=== PATIENT | male | born 1985 | race Caucasian/White ===

== ENCOUNTER 2020-07-29 12:39 | Inpatient (IN) | payer OTHER ==
--- NOTE | 2020-07-29 13:28 | BHS.RME ---
Substance Use & Tx History - Substance Use History Alcohol Substance amount: 3-5 bottles wine Frequency of use: Daily Substance route: Oral Date of Last Use: 07/29/20 Nicotine Substance amount: 1/2 pack Frequency of use: Daily Substance route: Smoking Date of Last Use: 07/29/20 Klonopin Substance amount: 1-2 tab Frequency of use: Daily Substance route: Oral Date of Last Use: 07/29/20
[2020-07-29 14:52] VITALS: BMI 23.1
--- NOTE | 2020-07-29 15:05 | HP ---
CIWA Score - Admission Criteria OASAS Guidelines: Admission for Medically Managed Detox: Requires at least one of the followin. CIWA greater than 12 2. Seizures within the past 24 hours 3. Delirium tremens within the past 24 hours 4. Hallucinations within the past 24 hours 5. Acute intervention needed for co occurring medical disorder 6. Acute intervention needed for co occurring psychiatric disorder 7. Severe withdrawal that cannot be handled at a lower level of care (continued vomiting, continued diarrhea, abnormal vital signs) requiring intravenous medication and/or fluids 8. Admitting History and Physical - Admission Chief Complaint: Mr. Napier is a 35 yo man who presents to [facility] requesting detox from alcohol. History of Present Illness: Mr. Napier is a 35 yo man who presents to [facility] requesting detox from alcohol. This is his first [facility] admission. Review of outside records, [place] final dx: alcohol use disorder, anxiety, depression follow up instructions: [facility] detox PMH: HIV (undetectable VL and CD4 between 450 and 500 per pt), compliant with medication, HTN tx in past off meds now PSH: Lasik, varicocoel Psych: anxiety, depression: on Lexapro, Klonopin rx SOC: lives in [facility] alone with girlfriend Legal: none Substance Use History Alcohol Substance amount: 3-5 bottles wine Frequency of use: Daily Substance route: Oral Date of Last Use: 07/29/20 first use age 22 y No seizures Blackout in Dec 2019 Admits to eye graduate internship Nicotine Substance amount: 1/2 pack Frequency of use: Daily Substance route: Smoking Date of Last Use: 07/29/20 Age of first use age 26 y Klonopin Substance amount: 1-2 tab Frequency of use: Daily Substance route: Oral Date of Last Use: 07/29/20 Lamin Napier Date: 1985 Address: [address] [place] [address] Sex: Male Rx Written Rx Dispensed Drug Quantity Days Supply Prescriber Name Payment Method Dispenser 07/06/2020 07/07/2020 clonazepam 0.5 mg tablet 60 30 Carlos Eduardo Mcknight Medicaid [facility] #[id number] 05/09/2020 05/17/2020 clonazepam 0.5 mg tablet 120 30 Colleen Issa MD Medicaid [facility] #[id number] 02/01/2020 02/15/2020 modafinil 200 mg tablet 30 30 Colleen Issa MD Medicaid [facility] #[id number] 02/01/2020 02/06/2020 clonazepam 0.5 mg tablet 120 30 Colleen Issa MD Medicaid [facility] #[id number] 01/07/2020 01/07/2020 clonazepam 0.5 mg tablet 60 30 Colleen Issa MD Medicaid [facility] #[id number] 10/19/2019 11/02/2019 clonazepam 0.5 mg tablet 30 15 Colleen Issa MD Medicaid [facility] #[id number] Date: 1985 Address: [address] [place] [address] Sex: Male Rx Written Rx Dispensed Drug Quantity Days Supply Prescriber Name Payment Method Dispenser 08/11/2019 08/11/2019 oxycodone-acetaminophen 5-325 mg tab 5 2 [facility], [facility] History Source: Patient Limitations to Obtaining History: No Limitations - Smoking History Smoking history: Current every day smoker Have you smoked in the past 12 months: Yes Aproximately how many cigarettes per day: 10 Admission ROS [facility] Allergies/Adverse Reactions: Allergies Allergy/AdvReac Type Severity Reaction Status Date / Time No Known Allergies Allergy Verified 07/29/20 14:31 Exam Limitations: No Limitations - Ebola screening Have you traveled outside of the country in the last 21 days: No Have you been sick,other than usual withdrawal symptoms: No Do you have a fever: No - Review of Systems Constitutional: No Symptoms Reported EENT: reports: No Symptoms Reported Respiratory: reports: No Symptoms reported Cardiac: reports: No Symptoms Reported GI: reports: Nausea : reports: No Symptoms Reported Musculoskeletal: reports: Back Pain Integumentary: reports: Dryness Neuro: reports: No Symptoms reported Endocrine: reports: No Symptoms Reported Hematology: reports: Anemia (unknown cause) Patient History - Patient Medical History Hx Asthma: No Hx Chronic Obstructive Pulmonary Disease (COPD): No Hx Cardiac Disorders: No Hx Hypertension: Yes Hx Seizures: No Hx Diabetes: No Hx Gastrointestinal Disorders: No Hx Genitourinary Disorders: No Hx Sexually Transmitted Disorders: Yes (HIV) Hx Renal Disease (ESRD): No Hx Depression: Yes Hx Suicide Attempt: No Hx Schizophrenia: No - Patient Surgical History Past Surgical History: Yes Hx Neurologic Surgery: No Hx Cataract Extraction: No Hx Cardiac Surgery: No Hx Lung Surgery: No Hx Breast Surgery: No Hx Breast Biopsy: No Hx Abdominal Surgery: No Hx Appendectomy: No Hx Cholecystectomy: No Hx Genitourinary Surgery: No Hx Section: No Hx Orthopedic Surgery: No Other Surgical History: VARICOCILE, B/L LASIX SURGERY 2015 Anesthesia Reaction: No - PPD History Previous Implant?: (UNSURE) - Smoking Cessation Smoking history: Current every day smoker Have you smoked in the past 12 months: Yes Aproximately how many cigarettes per day: 10 Hx Chewing Tobacco Use: No Initiated information on smoking cessation: Yes 'Breaking Loose' booklet given: 07/29/20 Admission Physical Exam BHS - Physical General Appearance: Yes: No Apparent Distress, Nourished, Appropriately Dressed HEENTM: Yes: EOMI, Hearing grossly Normal, Normocephalic, Normal Voice Respiratory: Yes: Lungs Clear, No Respiratory Distress, No Accessory Muscle Use Neck: Yes: Within Normal Limits, Supple Breast: Yes: Breast Exam Deferred Cardiology: Yes: Regular Rhythm, Regular Rate Abdominal: Yes: Normal Bowel Sounds, Flat, Soft, Tenderness (mild bilateral upper quadrants) Genitourinary: Yes: Other (deferred) Back: Yes: Normal Inspection Musculoskeletal: Yes: Gait Steady Extremities: Yes: Normal Inspection, Non-Tender Neurological: Yes: Alert, Normal Response Integumentary: Yes: Within Normal Limits - Diagnostic (1) Alcohol dependence with withdrawal, uncomplicated Current Visit: Yes Status: Acute Comment: 1. Detox protocol 2. Librium, await labs to check LFTs 3. comfort medications (2) Benzodiazepine dependence, continuous Current Visit: Yes Status: Acute Comment: 1. I Stop checked, pt has rx clonazepam, will not continue while on Librium detox (3) Nicotine dependence Current Visit: Yes Status: Acute Comment: 1. Nicoderm patch (4) HIV (human immunodeficiency virus infection) Current Visit: Yes Status: Acute Comment: 1. continue meds, pt states he is compliant (5) Anemia Current Visit: Yes Status: Acute Comment: 1. unclear etiology 2. CBC drawn (6) Anxiety Current Visit: Yes Status: Acute (7) Depression Current Visit: Yes Status: Acute Comment: 1. was seen in [facility] late last evening, dx with alcohol use disorder, anxiety, depression 2. will have Psychiatry see pt (8) HTN (hypertension) Current Visit: Yes Status: Acute Comment: 1. prior meds discontinued per pt 2. will give Lisinopril 10 mg now and order daily to start tomorrow Cleared for Admission S - Detox or Rehab [facility] Level of Care: Medically Managed Detox Regimen/Protocol: Librium Breathalyzer - Breathalyzer Breathalyzer: 0 Urine Drug Screen - Test Device Lot number: [id number] Expiration date: 02/23/22 - Control Is test valid?: Yes - Results Drug screen NEGATIVE: No Urine drug screen results: BZO-Benzodiazepines Inpatient Rehab Admission - Rehab Decision to Admit Inpatient rehab admission?: No
[2020-07-29] MEDS ORDERED: LISINOPRIL 10 MG TABLET (FP) ONE (15:23)
[2020-07-29] MEDS ORDERED: IBUPROFEN 400 MG TABLET (FP) PO PRN (15:25)
[2020-07-29] MEDS ORDERED: ACETAMINOPHEN 325 MG TABLET (FP) PO PRN (15:25)
[2020-07-29] MEDS ORDERED: MAGNESIUM HYDROX 2400MG/30ML ORAL SUSPENSION 30 ML CUP PO PRN (15:25)
[2020-07-29] MEDS ORDERED: ONDANSETRON *ODT* 4 MG TABLET SL PRN (15:25)
[2020-07-29] MEDS ORDERED: BISMUTH SUBSALICYLATE 524 MG/30 ML UD PO PRN (15:25)
[2020-07-29] MEDS ORDERED: MAG HYDROX/AL HYDROX/SIMETH 30 ML UNIT-DOSE CUP PO PRN (15:25)
[2020-07-29] MEDS ORDERED: MAGNESIUM CITRATE 300 ML BOTTLE PO PRN (15:25)
[2020-07-29] MEDS ORDERED: LISINOPRIL 10 MG TABLET (FP) PO ONE (15:29)
[2020-07-29 16:41] LABS: HEMATOCRIT 41.3 % (35.4-49); HEMOGLOBIN 14.1 GM/dL (11.7-16.9); MCH 32.2 pg (25.7-33.7); MCHC 34.1 g/dl (32.0-35.9); MEAN CELL VOLUME 94.5 fl (80-96); PLATELET COUNT 252 K/MM3 (134-434); RBC 4.37 M/mm3 (4.00-5.60); RDW 14.7 % (11.9-15.9); WHITE BLOOD COUNT 3.7 K/mm3 (4.0-10.0)
[2020-07-29 16:48] LABS: ALBUMIN 4.3 g/dl (3.4-5.0); BLOOD UREA NITROGEN 16.6 mg/dL (7-18); CALCIUM 9.4 mg/dL (8.5-10.1); POTASSIUM 4.1 mmol/L (3.5-5.1); TOT PROT 7.3 g/dl (6.4-8.2)
[2020-07-29] MEDS: hydrOXYzine PAMOATE 25 MG CAPSULE (FP) PO SCH ×2 (18:35→22:36)
[2020-07-29] MEDS: chlordiazePOXIDE HCL 25 MG CAPSULE PO SCH ×2 (18:35→22:36)
[2020-07-29] MEDS: NICOTINE 14 MG/24 HOURS TOPICAL PATCH TD SCH (18:36)
[2020-07-29] MEDS: THIAMINE HCL 100 MG TABLET (FP) PO SCH (22:36)
[2020-07-29] MEDS: MELATONIN 5 MG TABLETS PO SCH (22:36)
[2020-07-30] MEDS: chlordiazePOXIDE HCL 25 MG CAPSULE PO SCH ×4 (06:12→22:45)
[2020-07-30] MEDS: hydrOXYzine PAMOATE 25 MG CAPSULE (FP) PO SCH ×5 (06:12→22:45)
[2020-07-30] MEDS: BICTEGRAV/EMTRICIT/TENOFOV (BIKTARVY) 50-200-25 MG TABLET PO SCH (10:49)
[2020-07-30] MEDS: NICOTINE 14 MG/24 HOURS TOPICAL PATCH TD SCH (10:51)
[2020-07-30] MEDS: PRENATAL VITAMINS W/ FOLIC ACID TABLET (FP) PO SCH (10:51)
[2020-07-30] MEDS: LISINOPRIL 10 MG TABLET (FP) PO SCH (10:51)
--- NOTE | 2020-07-30 11:16 | CONSULT ---
[facility] Psychiatric Consult - Data Date of interview: 07/30/20 Admission source: [facility] Identifying data: First visit to [facility] and admission to [address] [place] [address] for this 35 y/o [place]born male, self-referred for detoxification treatment. VIVIANE issues : alcohol, benzodiazepine (klonopin), nicotine. Patient is single, no dependents, domiciled, unemployed and supported on welfare. Substance Abuse History: Discussed with the patient. VIVIANE profile as follows : Alcohol. Substance amount: 3-5 bottles wine. Frequency of use: Daily. Substance route: Oral. Date of Last Use: 07/29/20. first use age 22 y. No seizures. Blackout in Dec 2019. Admits to eye [employer]. Nicotine. Substance amount: 1/2 pack. Frequency of use: Daily. Substance route: Smoking. Date of Last Use: 07/29/20. Age of first use age 26 y. Klonopin. Substance amount: 1-2 tab. Frequency of use: Daily. Substance route: Oral. Date of Last Use: 07/29/20 Medical History: Medical profile is remarkable for HIV infection (on ART medications), hypertension, varicocele and history of Lasik surgery (bilateral). No known allergies. Psychiatric History: Patient denies history of psychiatric hospitalizations. However, he endorses current outpatient psychiatric care at the [facility] in [facility]. Mr Napier reports his maintenance medications as clonazepam + propanolol + lexapro (doses not recalled). Patient denies history of suicide attempts. Physical/Sexual Abuse/Trauma History: Not discussed. Patient declines. Additional Comment: Urine drug screen results: BZO-Benzodiazepines. Noted. Mental Status Exam - Mental Status Exam Alert and Oriented to: Time, Place, Person Cognitive Function: Good Patient Appearance: Well Groomed Mood: Withdrawn Affect: Appropriate, Normal Range Patient Behavior: Fatigued, Appropriate, Cooperative Speech Pattern: Clear, Appropriate Voice Loudness: Normal Thought Process: Intact, Goal Oriented Thought Disorder: Not Present Hallucinations: Denies Suicidal Ideation: Denies Homicidal Ideation: Denies Insight/Judgement: Fair Sleep: Fair Appetite: Good Gait/Station: Normal Psychiatric Findings - Problem List ([place] 1, 2,3) (1) Alcohol dependence with withdrawal, uncomplicated Current Visit: Yes Status: Acute Comment: (2) Benzodiazepine dependence, continuous Current Visit: Yes Status: Chronic Comment: (3) Nicotine dependence Current Visit: Yes Status: Chronic Comment: (4) History of depression Current Visit: Yes Status: Chronic (5) History of anxiety disorder Current Visit: Yes Status: Chronic - Initial Treatment Plan Initial Treatment Plan: Psychoeducation. Sleep hygiene principles revisited. Support. Detoxification in progress. [employer] contacted pharmacist ([phone]) at [facility] # [id number] for verification of medications : confirmed scripts for gabapentin 100 mg/tid + klonopin 0.5 mg/bid + lexapro 10 mg/day + trazodone 50 mg/hs prn (07/06/20). Resumed with the patient's consent (verbal) : gabapentin 100 mg po tid + lexapro 10 mg po daily. Side effects/benefits discussed with the patient. Mr Napier is in agreement with this plan of care. Observation.
--- NOTE | 2020-07-30 12:40 | PN ---
[facility] CIWA - CIWA Score Nausea/Vomitin-No Nausea/No Vomiting Muscle Tremors: None Anxiety: 3 Agitation: 0-Normal Activity Paroxysmal Sweats: 3 Orientation: 0-Oriented Tacttile Disturbances: 0-None Auditory Disturbances: 0-None Visual Disturbances: 0-None Headache: 2-Mild CIWA-Ar Total Score: 8 S Progress Note (SOAP) Subjective: c/o headache, sweats, anxiety, and interrupted sleep. Objective: 07/30/20 12:36 Vital Signs 07/30/20 08:35 Temperature 97.7 F Pulse Rate 61 Respiratory 17 Rate Blood Pressure 112/67 Laboratory Last Values WBC 3.7 K/mm3 (4.0-10.0) L 07/29/20 15:15 RBC 4.37 M/mm3 (4.00-5.60) 07/29/20 15:15 Hgb 14.1 GM/dL (11.7-16.9) 07/29/20 15:15 Hct 41.3 % (35.4-49) 07/29/20 15:15 MCV 94.5 fl (80-96) 07/29/20 15:15 MCH 32.2 pg (25.7-33.7) 07/29/20 15:15 MCHC 34.1 g/dl (32.0-35.9) 07/29/20 15:15 RDW 14.7 % (11.9-15.9) 07/29/20 15:15 Plt Count 252 K/MM3 (134-434) 07/29/20 15:15 MPV 7.0 fl (7.5-11.1) L 07/29/20 15:15 Sodium 139 mmol/L (136-145) 07/29/20 15:15 Potassium 4.1 mmol/L (3.5-5.1) 07/29/20 15:15 Chloride 104 mmol/L (98-107) 07/29/20 15:15 Carbon Dioxide 33 mmol/L (21-32) H 07/29/20 15:15 Anion Gap 2 MMOL/L (8-16) L 07/29/20 15:15 BUN 16.6 mg/dL (7-18) 07/29/20 15:15 Creatinine 1.0 mg/dL (0.55-1.3) 07/29/20 15:15 Est GFR (CKD-EPI)AfAm 114.11 07/29/20 15:15 Est GFR (CKD-EPI)NonAf 98.45 07/29/20 15:15 Random Glucose 103 mg/dL (74-106) 07/29/20 15:15 Calcium 9.4 mg/dL (8.5-10.1) 07/29/20 15:15 Total Bilirubin 1.0 mg/dL (0.2-1) 07/29/20 15:15 AST 17 U/L (15-37) 07/29/20 15:15 ALT 29 U/L (13-61) 07/29/20 15:15 Alkaline Phosphatase 81 U/L (45-117) 07/29/20 15:15 Total Protein 7.3 g/dl (6.4-8.2) 07/29/20 15:15 Albumin 4.3 g/dl (3.4-5.0) 07/29/20 15:15 Syphilis Serology Reactive (NONREACTIVE) A* 07/29/20 15:15 RPR Titer Reactive 1:1 (NONREACTIVE) H 07/29/20 15:15 Labs noted with RPR of 1:1. 07/30/20 12:41 Assessment: 07/30/20 12:40 AOX3, in no acute respiratory distress. Full ROM, ambulating in the unit. Withdrawal symptoms. RPR 1:1, had syphilis and got treated some years ago. 07/30/20 12:42 07/30/20 14:17 Plan: continue detox.
[2020-07-30] MEDS: ACETAMINOPHEN 325 MG TABLET (FP) PO PRN (14:49)
[2020-07-30] MEDS: chlordiazePOXIDE HCL 25 MG CAPSULE PO PRN (14:49)
[2020-07-30] MEDS: GABAPENTIN 100 MG CAPSULE PO SCH (22:45)
[2020-07-30] MEDS: THIAMINE HCL 100 MG TABLET (FP) PO SCH (22:45)
[2020-07-30] MEDS: MELATONIN 5 MG TABLETS PO SCH (22:46)
[2020-07-31] MEDS: GABAPENTIN 100 MG CAPSULE PO SCH ×3 (06:10→23:09)
[2020-07-31] MEDS: hydrOXYzine PAMOATE 25 MG CAPSULE (FP) PO SCH ×5 (06:10→23:11)
[2020-07-31] MEDS: chlordiazePOXIDE HCL 25 MG CAPSULE PO SCH ×4 (06:10→23:10)
[2020-07-31] MEDS: BICTEGRAV/EMTRICIT/TENOFOV (BIKTARVY) 50-200-25 MG TABLET PO SCH (09:57)
[2020-07-31] MEDS: LISINOPRIL 10 MG TABLET (FP) PO SCH (09:58)
[2020-07-31] MEDS: ESCITALOPRAM OXALATE 10 MG TABLET PO SCH (09:58)
[2020-07-31] MEDS: PRENATAL VITAMINS W/ FOLIC ACID TABLET (FP) PO SCH (09:58)
[2020-07-31] MEDS: NICOTINE 14 MG/24 HOURS TOPICAL PATCH TD SCH (10:58)
--- NOTE | 2020-07-31 11:05 | PN ---
[facility] CIWA - CIWA Score Nausea/Vomitin-Mild Nausea/No Vomiting Muscle Tremors: 1-None Visible, but [place] Anxiety: 1-Mildly Anxious Agitation: 1-Slight > Activity Paroxysmal Sweats: 1-Minimal Palms Moist Orientation: 0-Oriented Tacttile Disturbances: 1-Very Mild Itch/Numbness Auditory Disturbances: 0-None Visual Disturbances: 0-None Headache: 1-Very Mild CIWA-Ar Total Score: 7 S Progress Note (SOAP) Subjective: 35 years old male was admitted on 07/29/20 for alcohol and benzo withdrawal sx management treating with librium detox regiment long history of hiv taking valtrax daily 1000mg reports gerd discontinue motrin begin pepcid tylenal 02/25 headache tylenal 650mg po x 1 oral thrust white patches on oral cheeks flagyl 500mg po bid x 5 days Objective: 07/31/20 11:14 Vital Signs - 24 hr 07/30/20 07/30/20 07/30/20 12:53 16:48 20:36 Temperature 97.7 F 97.7 F 97.7 F Pulse Rate 84 65 75 Respiratory 18 17 18 Rate Blood Pressure 145/92 126/79 143/94 O2 Sat by Pulse 98 98 Oximetry (%) 07/31/20 07/31/20 06:05 08:57 Temperature 97.1 F L 96.1 F L Pulse Rate 86 86 Respiratory 18 18 Rate Blood Pressure 128/73 146/87 O2 Sat by Pulse 95 Oximetry (%) Laboratory Tests 07/29/20 07/29/20 07/29/20 14:55 15:15 15:15 WBC 3.7 L RBC 4.37 Hgb 14.1 Hct 41.3 MCV 94.5 MCH 32.2 MCHC 34.1 RDW 14.7 Plt Count 252 MPV 7.0 L Sodium 139 Potassium 4.1 Chloride 104 Carbon Dioxide 33 H Anion Gap 2 L BUN 16.6 Creatinine 1.0 Est GFR (CKD-EPI)AfAm 114.11 Est GFR (CKD-EPI)NonAf 98.45 Random Glucose 103 Calcium 9.4 Total Bilirubin 1.0 AST 17 ALT 29 Alkaline Phosphatase 81 Total Protein 7.3 Albumin 4.3 Syphilis Serology RPR Titer COVID-19 (DENISSE) Not detected 07/29/20 07/29/20 15:15 15:15 WBC RBC Hgb Hct MCV MCH MCHC RDW Plt Count MPV Sodium Potassium Chloride Carbon Dioxide Anion Gap BUN Creatinine Est GFR (CKD-EPI)AfAm Est GFR (CKD-EPI)NonAf Random Glucose Calcium Total Bilirubin AST ALT Alkaline Phosphatase Total Protein Albumin Syphilis Serology Reactive A* RPR Titer Reactive 1:1 H COVID-19 (DENISSE) 07/31/20 11:16 syphilis contacted treated Assessment: 07/31/20 11:16 alcohol and benzo withdrawal Plan: librium regiment
[2020-07-31] MEDS ORDERED: ACETAMINOPHEN 325 MG TABLET (FP) PO ONE (11:11)
[2020-07-31] MEDS ORDERED: FAMOTIDINE 20 MG TABLET PO SCH (11:15)
[2020-07-31] MEDS: METHOCARBAMOL 500 MG TABLET PO PRN (13:58)
[2020-07-31] MEDS: chlordiazePOXIDE HCL 25 MG CAPSULE PO PRN (13:58)
[2020-07-31] MEDS: valACYclovir HCL 500 MG TABLET (FP) PO SCH (13:58)
[2020-07-31] MEDS: metroNIDAZOLE 250 MG TABLET PO SCH ×2 (14:08→23:10)
[2020-07-31] MEDS: NICOTINE POLACRILEX 2 MG GUM BUC PRN ×2 (17:28→21:30)
[2020-07-31] MEDS: MENTHOL/PHENOL 1 EACH UD MM PRN (21:30)
[2020-07-31] MEDS: FAMOTIDINE 20 MG TABLET PO SCH (23:10)
[2020-07-31] MEDS: MELATONIN 5 MG TABLETS PO SCH (23:10)
[2020-07-31] MEDS: THIAMINE HCL 100 MG TABLET (FP) PO SCH (23:11)
[2020-08-01] MEDS ORDERED: chlordiazePOXIDE HCL 10 MG CAPSULE PO PRN
[2020-08-01] MEDS: METHOCARBAMOL 500 MG TABLET PO PRN (01:10)
[2020-08-01] MEDS: ACETAMINOPHEN 325 MG TABLET (FP) PO PRN (01:11)
[2020-08-01] MEDS: hydrOXYzine PAMOATE 25 MG CAPSULE (FP) PO SCH ×5 (05:22→22:14)
[2020-08-01] MEDS: chlordiazePOXIDE HCL 10 MG CAPSULE PO SCH ×4 (05:22→22:13)
[2020-08-01] MEDS: GABAPENTIN 100 MG CAPSULE PO SCH ×3 (05:22→22:14)
[2020-08-01] MEDS: FAMOTIDINE 20 MG TABLET PO SCH ×2 (10:25→22:13)
[2020-08-01] MEDS: valACYclovir HCL 500 MG TABLET (FP) PO SCH (10:25)
[2020-08-01] MEDS: ESCITALOPRAM OXALATE 10 MG TABLET PO SCH (10:26)
[2020-08-01] MEDS: PRENATAL VITAMINS W/ FOLIC ACID TABLET (FP) PO SCH (10:26)
[2020-08-01] MEDS: NICOTINE 14 MG/24 HOURS TOPICAL PATCH TD SCH (10:26)
[2020-08-01] MEDS: BICTEGRAV/EMTRICIT/TENOFOV (BIKTARVY) 50-200-25 MG TABLET PO SCH (10:26)
[2020-08-01] MEDS: LISINOPRIL 10 MG TABLET (FP) PO SCH (10:26)
[2020-08-01] MEDS: metroNIDAZOLE 250 MG TABLET PO SCH ×2 (10:26→22:14)
[2020-08-01] MEDS: NICOTINE POLACRILEX 2 MG GUM BUC PRN ×3 (10:33→22:17)
[2020-08-01] MEDS: MENTHOL/PHENOL 1 EACH UD MM PRN ×3 (10:34→22:18)
[2020-08-01] MEDS ORDERED: PNEUMOCOCCAL 23 VACCINE 0.5 ML VIAL IM ONE (11:19)
[2020-08-01] MEDS ORDERED: PENICILLIN G BENZATHINE 2,400,000 UNIT/4 ML PFS IM ONE (11:38)
--- NOTE | 2020-08-01 11:38 | PN ---
S CIWA - CIWA Score Nausea/Vomitin-Mild Nausea/No Vomiting Muscle Tremors: 2 Anxiety: 3 Agitation: 0-Normal Activity Paroxysmal Sweats: No Perspiration Orientation: 0-Oriented Tacttile Disturbances: 0-None Auditory Disturbances: 0-None Visual Disturbances: 0-None Headache: 0-None Present CIWA-Ar Total Score: 6 BHS Progress Note (SOAP) Subjective: 35 yeas old male was admitted on 07/29/20 for alcohol and benzo withdrawal sx management treating with librium detox regiment mr guerrero stats that he has itchy skin on and off due to his hiv status bendaryl cream TP mr guerrero requests pneumovax due to his hiv status "my doctor gave me that 2003" order pneumovax IM Objective: 08/01/20 11:25 Vital Signs - 24 hr 07/31/20 07/31/20 07/31/20 12:23 16:46 20:52 Temperature 97.1 F L 97.0 F L 97.5 F L Pulse Rate 86 107 H 83 Respiratory 16 19 18 Rate Blood Pressure 130/75 119/70 121/68 O2 Sat by Pulse 95 95 Oximetry (%) 08/01/20 08/01/20 05:12 09:01 Temperature 96.8 F L 97.3 F L Pulse Rate 71 93 H Respiratory 18 20 Rate Blood Pressure 100/61 127/76 O2 Sat by Pulse 97 Oximetry (%) Laboratory Tests 07/29/20 07/29/20 07/29/20 14:55 15:15 15:15 WBC 3.7 L RBC 4.37 Hgb 14.1 Hct 41.3 MCV 94.5 MCH 32.2 MCHC 34.1 RDW 14.7 Plt Count 252 MPV 7.0 L Sodium 139 Potassium 4.1 Chloride 104 Carbon Dioxide 33 H Anion Gap 2 L BUN 16.6 Creatinine 1.0 Est GFR (CKD-EPI)AfAm 114.11 Est GFR (CKD-EPI)NonAf 98.45 Random Glucose 103 Calcium 9.4 Total Bilirubin 1.0 AST 17 ALT 29 Alkaline Phosphatase 81 Total Protein 7.3 Albumin 4.3 Syphilis Serology RPR Titer COVID-19 (DENISSE) Not detected 07/29/20 07/29/20 15:15 15:15 WBC RBC Hgb Hct MCV MCH MCHC RDW Plt Count MPV Sodium Potassium Chloride Carbon Dioxide Anion Gap BUN Creatinine Est GFR (CKD-EPI)AfAm Est GFR (CKD-EPI)NonAf Random Glucose Calcium Total Bilirubin AST ALT Alkaline Phosphatase Total Protein Albumin Syphilis Serology Reactive A* RPR Titer Reactive 1:1 H COVID-19 (DENISSE) 08/01/20 11:47 mr guerrero requests boost shot of penicillin order penicillin IM x 1 Assessment: 08/01/20 11:50 alcohol and benzo withdrawal Plan: librium regiment
--- NOTE | 2020-08-01 11:45 | EKG ---
Test Reason : Blood Pressure : / mmHG Vent. Rate : 053 BPM Atrial Rate : 053 BPM P-R Int : 164 ms QRS Dur : 084 ms QT Int : 396 ms P-R-T Axes : 071 067 047 degrees QTc Int : 371 ms SINUS BRADYCARDIA OTHERWISE NORMAL ECG NO PREVIOUS ECGS AVAILABLE Confirmed by PRASANTH SALAZAR MD ([id number]) on 08/01/2020 11:44:25 AM Referred By: Confirmed By:PRASANTH SALAZAR MD
--- NOTE | 2020-08-01 15:47 | PN ---
[facility] Progress Note Note: Psychiatry Attending's note (follow-up) : Met briefly with the patient. Mr Napier requests trazodone at bedtime. Patient is made aware of risk of priapism. Trazodone 50 mg po hs. Ordered on consent.
[2020-08-01] MEDS: traZODone HCL 50 MG TABLET (FP) PO SCH (22:13)
[2020-08-01] MEDS: MELATONIN 5 MG TABLETS PO SCH (22:14)
[2020-08-01] MEDS: THIAMINE HCL 100 MG TABLET (FP) PO SCH (22:14)
[2020-08-02] MEDS: GABAPENTIN 100 MG CAPSULE PO SCH ×3 (06:04→22:18)
[2020-08-02] MEDS: hydrOXYzine PAMOATE 25 MG CAPSULE (FP) PO SCH ×5 (06:04→22:18)
[2020-08-02] MEDS: chlordiazePOXIDE HCL 10 MG CAPSULE PO SCH ×2 (06:05→18:06)
[2020-08-02] MEDS: MENTHOL/PHENOL 1 EACH UD MM PRN ×4 (06:06→21:30)
[2020-08-02] MEDS: NICOTINE POLACRILEX 2 MG GUM BUC PRN ×4 (06:06→21:29)
[2020-08-02] MEDS: BICTEGRAV/EMTRICIT/TENOFOV (BIKTARVY) 50-200-25 MG TABLET PO SCH (10:41)
[2020-08-02] MEDS: valACYclovir HCL 500 MG TABLET (FP) PO SCH (10:42)
[2020-08-02] MEDS: NICOTINE 14 MG/24 HOURS TOPICAL PATCH TD SCH (10:43)
[2020-08-02] MEDS: metroNIDAZOLE 250 MG TABLET PO SCH ×2 (10:43→22:18)
[2020-08-02] MEDS: FAMOTIDINE 20 MG TABLET PO SCH ×2 (10:43→22:18)
[2020-08-02] MEDS: LISINOPRIL 10 MG TABLET (FP) PO SCH (10:43)
[2020-08-02] MEDS: ESCITALOPRAM OXALATE 10 MG TABLET PO SCH (10:43)
[2020-08-02] MEDS: PRENATAL VITAMINS W/ FOLIC ACID TABLET (FP) PO SCH (12:18)
--- NOTE | 2020-08-02 13:48 | PN ---
S CIWA - CIWA Score Nausea/Vomitin-Mild Nausea/No Vomiting Muscle Tremors: 1-None Visible, but [place] Anxiety: 1-Mildly Anxious Agitation: 0-Normal Activity Paroxysmal Sweats: No Perspiration Orientation: 0-Oriented Tacttile Disturbances: 0-None Auditory Disturbances: 0-None Visual Disturbances: 0-None Headache: 0-None Present CIWA-Ar Total Score: 3 BHS Progress Note (SOAP) Subjective: 35 YEARS OLD MALE WAS ADMITTED ON 07/29/20 FOR ALCOHOL AND BENZO WITHDRAWAL SX MANAGEMENT TREATING WITH LIBRIUM DETOX REGIMENT FEELS BETTER TODAY LESS TREMOR MILD ANXIETY DISCUSS AFTERCARE WITH STAFF THAT MR SALAZAR PREFERTS TO GO TO [facility] FOR ALCOHOL AND BENZO ABUSE TREATMENT Objective: 08/02/20 13:52 Vital Signs - 24 hr 08/01/20 08/01/20 08/01/20 16:20 17:01 20:58 Temperature 97.8 F 97.9 F 97.5 F L Pulse Rate 92 H 88 85 Respiratory 18 18 18 Rate Blood Pressure 118/72 142/81 134/85 O2 Sat by Pulse 97 97 Oximetry (%) 08/02/20 08/02/20 06:05 08:44 Temperature 97.1 F L 98 F Pulse Rate 77 75 Respiratory 18 20 Rate Blood Pressure 114/63 136/77 O2 Sat by Pulse 97 97 Oximetry (%) Laboratory Tests 07/29/20 07/29/20 07/29/20 14:55 15:15 15:15 WBC 3.7 L RBC 4.37 Hgb 14.1 Hct 41.3 MCV 94.5 MCH 32.2 MCHC 34.1 RDW 14.7 Plt Count 252 MPV 7.0 L Sodium 139 Potassium 4.1 Chloride 104 Carbon Dioxide 33 H Anion Gap 2 L BUN 16.6 Creatinine 1.0 Est GFR (CKD-EPI)AfAm 114.11 Est GFR (CKD-EPI)NonAf 98.45 Random Glucose 103 Calcium 9.4 Total Bilirubin 1.0 AST 17 ALT 29 Alkaline Phosphatase 81 Total Protein 7.3 Albumin 4.3 Syphilis Serology RPR Titer COVID-19 (DENISSE) Not detected 07/29/20 07/29/20 15:15 15:15 WBC RBC Hgb Hct MCV MCH MCHC RDW Plt Count MPV Sodium Potassium Chloride Carbon Dioxide Anion Gap BUN Creatinine Est GFR (CKD-EPI)AfAm Est GFR (CKD-EPI)NonAf Random Glucose Calcium Total Bilirubin AST ALT Alkaline Phosphatase Total Protein Albumin Syphilis Serology Reactive A* RPR Titer Reactive 1:1 H COVID-19 (DENISSE) SYPHILIS CONTACTED TREATED Assessment: 08/02/20 13:53 ALCOHOL AND BENZO WITHDRAWAL Plan: LIBRIUM REGIMENT
[2020-08-02] MEDS ORDERED: PNEUMOC 13-VAL CONJ-DIP CRM/PF 0.5 ML DISP.SYRIN IM ONE (14:40)
[2020-08-02] MEDS: traZODone HCL 50 MG TABLET (FP) PO SCH (22:17)
[2020-08-02] MEDS: MELATONIN 5 MG TABLETS PO SCH (22:18)
[2020-08-02] MEDS: THIAMINE HCL 100 MG TABLET (FP) PO SCH (22:18)
[2020-08-03] MEDS ORDERED: chlordiazePOXIDE HCL 10 MG CAPSULE PO ONE (05:00)
[2020-08-03] MEDS: hydrOXYzine PAMOATE 25 MG CAPSULE (FP) PO SCH ×2 (06:06→09:16)
[2020-08-03] MEDS: GABAPENTIN 100 MG CAPSULE PO SCH (06:06)
[2020-08-03 06:35] VITALS: BP 124/71; PULSE 73; TEMP 97.5
[2020-08-03] MEDS: NICOTINE POLACRILEX 2 MG GUM BUC PRN (06:45)
[2020-08-03] MEDS: PRENATAL VITAMINS W/ FOLIC ACID TABLET (FP) PO SCH (09:13)
[2020-08-03] MEDS: valACYclovir HCL 500 MG TABLET (FP) PO SCH (09:13)
[2020-08-03] MEDS: ESCITALOPRAM OXALATE 10 MG TABLET PO SCH (09:14)
[2020-08-03] MEDS: LISINOPRIL 10 MG TABLET (FP) PO SCH (09:14)
[2020-08-03] MEDS: BICTEGRAV/EMTRICIT/TENOFOV (BIKTARVY) 50-200-25 MG TABLET PO SCH (09:14)
[2020-08-03] MEDS: metroNIDAZOLE 250 MG TABLET PO SCH (09:14)
[2020-08-03] MEDS: FAMOTIDINE 20 MG TABLET PO SCH (09:16)
[2020-08-03] MEDS: NICOTINE 14 MG/24 HOURS TOPICAL PATCH TD SCH (09:16)
--- NOTE | 2020-08-03 14:20 | DS ---
[facility] Detox Discharge Summary Admission Date: 07/29/20 Discharge Date: 08/03/20 - History Present History: Alcohol Dependence, Sedative Dependence Additional Comments: 35 years old male was admitted on 07/29/20 for alcohol and benzo withdrawal sx management treating with librium detox regiment seen by psychiatrist resume laxapro seroquel trazodone gabapentin mr guerrero has completed the librium regiment and is tolerated well General Appearance: Yes: No Apparent Distress, Nourished, Appropriately Dressed HEENTM: Yes: EOMI, Hearing grossly Normal, Normocephalic, Normal Voice Respiratory: Yes: Lungs Clear, No Respiratory Distress, No Accessory Muscle Use Neck: Yes: Within Normal Limits, Supple Breast: Yes: Breast Exam Deferred Cardiology: Yes: Regular Rhythm, Regular Rate Abdominal: Yes: Normal Bowel Sounds, Flat, Soft, Tenderness (mild bilateral upper quadrants) Genitourinary: Yes: Other (deferred) Back: Yes: Normal Inspection Musculoskeletal: Yes: Gait Steady Extremities: Yes: Normal Inspection, Non-Tender Neurological: Yes: Alert, Normal Response Integumentary: Yes: Within Normal Limits Pertinent Past History: time for discharge 35 minutes - Physical Exam Results Vital Signs: Vital Signs Temperature 97.5 F L 08/03/20 06:34 Pulse Rate 73 08/03/20 06:34 Respiratory Rate 18 08/03/20 06:34 Blood Pressure 124/71 08/03/20 06:34 O2 Sat by Pulse Oximetry (%) 99 08/03/20 06:34 Pertinent Admission Physical Exam Findings: alcohol and benzo withdrawal Vital Signs - 24 hr 08/02/20 08/02/20 08/03/20 16:59 20:59 06:34 Temperature 98.0 F 97.3 F L 97.5 F L Pulse Rate 90 95 H 73 Respiratory 18 18 18 Rate Blood Pressure 138/83 135/84 124/71 O2 Sat by Pulse 100 98 99 Oximetry (%) Laboratory Tests 07/29/20 07/29/20 07/29/20 14:55 15:15 15:15 WBC 3.7 L RBC 4.37 Hgb 14.1 Hct 41.3 MCV 94.5 MCH 32.2 MCHC 34.1 RDW 14.7 Plt Count 252 MPV 7.0 L Sodium 139 Potassium 4.1 Chloride 104 Carbon Dioxide 33 H Anion Gap 2 L BUN 16.6 Creatinine 1.0 Est GFR (CKD-EPI)AfAm 114.11 Est GFR (CKD-EPI)NonAf 98.45 Random Glucose 103 Calcium 9.4 Total Bilirubin 1.0 AST 17 ALT 29 Alkaline Phosphatase 81 Total Protein 7.3 Albumin 4.3 Syphilis Serology RPR Titer COVID-19 (DENISSE) Not detected Hep C Ab Diagnostic 07/29/20 07/29/20 08/02/20 15:15 15:15 08:00 WBC RBC Hgb Hct MCV MCH MCHC RDW Plt Count MPV Sodium Potassium Chloride Carbon Dioxide Anion Gap BUN Creatinine Est GFR (CKD-EPI)AfAm Est GFR (CKD-EPI)NonAf Random Glucose Calcium Total Bilirubin AST ALT Alkaline Phosphatase Total Protein Albumin Syphilis Serology Reactive A* RPR Titer Reactive 1:1 H COVID-19 (DENISSE) Hep C Ab Diagnostic <0.1 syphilis contacted treated - Treatment Hospital Course: Detox Protocol Followed, Detoxed Safely, Responded well, Discharged Condition Good, Rehab Referral Accepted Patient has Accepted a Rehab Referral to: [facility] - Medication Discharge Medications: Ambulatory Orders Bictegrav/Emtricit/Tenofov Ala [Biktarvy 50-200-25 mg Tablet] 1 each PO DAILY 07/29/20 Escitalopram Oxalate [Lexapro 5mg/5mL Oral Solution -] 10 mg PO DAILY 07/29/20 Gabapentin [Neurontin -] 100 mg PO BID 07/29/20 Nicotine [Nicoderm Cq] 1 each TD DAILY 07/29/20 Valacyclovir HCl [Valtrex -] 1,000 mg PO PRN 07/29/20 clonazePAM [Klonopin -] 0.5 mg PO BID 07/29/20 traZODone HCL [Desyrel -] 50 mg PO HS 08/01/20 - Diagnosis (1) Substance induced mood disorder Status: Suspected (2) Alcohol dependence with withdrawal, uncomplicated Status: Acute (3) Benzodiazepine dependence, continuous Status: Acute (4) Nicotine dependence Status: Acute Qualifiers: Nicotine product type: cigarettes Substance use status: in withdrawal Qualified Code(s): F17.213 - Nicotine dependence, cigarettes, with withdrawal (5) HIV (human immunodeficiency virus infection) Status: Chronic Qualifiers: HIV symptom status: asymptomatic Qualified Code(s): Z21 - Asymptomatic human immunodeficiency virus [HIV] infection status (6) HTN (hypertension) Status: Chronic Qualifiers: Hypertension type: essential hypertension Qualified Code(s): I10 - Essential (primary) hypertension - AMA Did Patient Leave Against Medical Advice: No CIWA Score - CIWA Score Nausea/Vomitin-Mild Nausea/No Vomiting Muscle Tremors: None Anxiety: 0-No Anxiety, at Ease Agitation: 0-Normal Activity Paroxysmal Sweats: No Perspiration Orientation: 0-Oriented Tacttile Disturbances: 0-None Auditory Disturbances: 0-None Visual Disturbances: 0-None Headache: 0-None Present CIWA-Ar Total Score: 1
== END 2020-08-03 09:22 | disposition home or self-care (01) | DRG 775 ==
LOC: YASAS 12:39 → Y3N 14:34
PROVIDERS: ADMIT Allergy & Immunology; ATTEND Allergy & Immunology
PROC: HZ2ZZZZ Detoxification Services for Substance Abuse Treatment (ICD-10-PCS; principal; 2020-07-29)
DX: F10.230 Alcohol dependence with withdrawal, uncomplicated (principal); F13.230 Sedative, hypnotic or anxiolytic dependence with withdrawal, uncomplicated; F17.210 Nicotine dependence, cigarettes, uncomplicated; F19.24 Other psychoactive substance dependence with psychoactive substance-induced mood disorder; F41.8 Other specified anxiety disorders; F32.9 Major depressive disorder, single episode, unspecified; Z21 Asymptomatic human immunodeficiency virus [HIV] infection status; A53.0 Latent syphilis, unspecified as early or late; D64.9 Anemia, unspecified; Z56.0 Unemployment, unspecified
CPT/HCPCS: 36415; 80053; 85027; 86593; 86780; 86803; 90670; 93005; 93010; U0003